=== PATIENT | female | born 1990 | race Caucasian/White ===

== ENCOUNTER → 2021-01-20 11:55 | Outpatient (CLI) | payer OTHER, SELFPAY ==
[2021-01-20 14:55] LABS: Add Manual Diff / Slide Review NO; Basophils Absolute Auto 0 /uL (0-100); Basophils Percent Auto 0.2 % (0-2); Eosinophils Absolute Auto 100 /uL (0-450); Eosinophils Percent Auto 0.4 % (2-4); Hematocrit 31.3 % (36-46); Hemoglobin 10.4 g/dL (12.0-16.0); Lymphocytes Absolute Auto 2200 /uL (1100-4500); Lymphocytes Percent Auto 15.9 % (25-40); Mean Corpuscular HGB Conc 33.3 % (30-36); Mean Corpuscular Hemoglobin 30.5 PG (26-34); Mean Corpuscular Volume 91.6 fL (80-100); Monocytes Absolute Auto 900 /uL (0-900); Monocytes Percent Auto 6.1 % (3-14); Neutrophils Absolute Auto 10800 /uL (1500-7000); Neutrophils Percent Auto 77.4 % (50-75); Platelet Count 315 X10^3/uL (150-400); Red Blood Cell Count 3.42 X10^6/uL (4.0-5.2); Red Cell Distribution Width 13.1 % (11.6-14.8)
[2021-01-20 15:44] LABS: GTT (PREG) 1 Hour PP 50gm Dose 97 mg/dL (76-139)
[2021-01-20 16:29] LABS: Urine N gonorrhoeae NOT DETECTED
[2021-01-20 16:39] LABS: Urine Chlamydia NOT DETECTED
[2021-01-21 07:16] LABS: RPR Screen Non Reactive (Non Reactive)
[2021-01-21 08:13] LABS: Varicella IgG Antibody <135 index (Immune >165)
[2021-01-23 17:43] LABS: Hep C Virus Ab w/Reflex Quant NEGATIVE s/c (NEGATIVE); Hepatitis B Surface Antigen NEGATIVE s/c (NEGATIVE); Rubella Antibody IgG 44.1 IU/mL (>15)
== END ==
PROVIDERS: Referring Provider Specialist; Visit Provider Specialist
DX: Z34.03 Encounter for supervision of normal first pregnancy, third trimester (principal)
CPT/HCPCS: 36415; 80055; 82950; 86787; 86803; 87491; 87591

== ENCOUNTER → 2021-03-02 12:53 | Outpatient (CLI) | payer OTHER, SELFPAY ==
[2021-03-03 12:16] LABS: Strep Grp B PCR POS for Grp B Strep
== END ==
PROVIDERS: PCP Nurse Practitioner Family; Visit Provider Specialist
DX: Z34.83 Encounter for supervision of other normal pregnancy, third trimester (principal); Z36.85 Encounter for antenatal screening for Streptococcus B; Z3A.36 36 weeks gestation of pregnancy
CPT/HCPCS: 87653

== ENCOUNTER 2021-03-20 03:31 | Observation (INO) | payer OTHER, SELFPAY ==
--- NOTE | 2021-03-20 06:05 | P.TNLD_ITS ---
Visit Information Visit Information Date of evaluation: 03/20/21 Primary OB Provider: Candice Bajwa On-call OB Provider: Jacqueline Pruitt Reason for Evaluation: Yes rule out labor Comments/Additional reasons for admission: 30YO @ 39wks here for evaluation of labor. Has been krysta all night. Contractions have progressed in intensity, now unbearable. +FM. No vaginal bleeding or leaking of fluid. Requesting pain medication. Uncomplicated care w/ . Vital Signs Vital Signs: BP 126/78mmHg, HR 72bpm, RR18/min, T 36.0F Temporal [facility] Medical History Chicken pox Vision disorder Surgical History [place] teeth extracted (~2009) Family History Father No problems noted. Mother Cancer Breast cancer Pre-diabetes Grandfather Cancer Pancreatic cancer Grandmother Fatty liver disease, nonalcoholic Lupus (systemic lupus erythematosus) Grandfather No problems noted. Grandmother No problems noted. Sister Horner syndrome Family/Other Cancer Breast cancer Diabetes mellitus Family/Other Diabetes mellitus Brother No problems noted. 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!) occupational status: unemployed current occupational exposures/hazards: No special jan needs: No Smoking Status: Never smoker second hand exposure: No alcohol intake: former (pre- : very rare) substance use type: does not use and marijuana (Occasional in the Past : not since confirmed ) Review of Systems Review of Systems ROS: Yes All systems reviewed with the patient and are negative except as otherwise documented Exam Vital Signs (past 8 hours): see above Presentation: vertex Psych Appearance: grossly normal Mental Status: mental status grossly normal Evaluation Evaluation Baseline heart rate: 135 Variability: Moderate (11-25) monitor accelerations: Present Monitor Decelerations: Early (single) Contraction Frequency (minutes): 3 Uterine Contraction Intensity: Mild Category of Tracing: Reactive Cervical dilation (cm): 1.5 Cervical effacement (%): 90 station: -2 Comments: CE unchanged after 2 hours Diagnosis, Plan/Disposition Final Diagnosis (1) False labor after 37 completed weeks of gestation: Status: Acute Problem details: early labor Plan/Disposition Plan: Offered morphine rest which patient agreed to. Counseled on side effect/risk/benefit. Encouraged rest and return of contractions persist. Otherwise Return to clinic as scheduled. OB Disposition: home
[2021-03-20] MEDS: hydrOXYzine pamoate 25 MG CAPSULE 50 MG PO (06:15)
[2021-03-20] MEDS: MORPHINE 10 MG/ML INJ IM (06:15)
== END 2021-03-20 06:28 | disposition home or self-care (01) ==
PROVIDERS: Admitting Provider Nurse Practitioner Obstetrics & Gynecology; PCP Nurse Practitioner Family; Referring Provider Nurse Practitioner Obstetrics & Gynecology; Visit Provider Nurse Practitioner Obstetrics & Gynecology
DX: O47.1 False labor at or after 37 completed weeks of gestation (principal); Z34.03 Encounter for supervision of normal first pregnancy, third trimester; Z3A.39 39 weeks gestation of pregnancy
CPT/HCPCS: 59025; 59050; 96372; G0378; G0379; J2270

== ENCOUNTER 2021-03-20 14:42 | Outpatient (CLI) | payer OTHER, SELFPAY | END 2021-03-20 15:44 | disposition home or self-care (01) | LOC: LABOR 16:21 → OB 03-21 04:49 | PROVIDERS: PCP Nurse Practitioner Family; Referring Provider Specialist; Visit Provider Specialist | DX: Z34.03 Encounter for supervision of normal first pregnancy, third trimester (principal); Z3A.39 39 weeks gestation of pregnancy | CPT/HCPCS: 59025; G0378; G0379 ==

== ENCOUNTER 2021-03-21 03:12 | Outpatient (CLI) | payer OTHER, SELFPAY ==
[2021-03-21 23:25] LABS: Add Manual Diff / Slide Review YES; Hematocrit 32.4 % (36-46); Mean Corpuscular HGB Conc 33.9 % (30-36); Mean Corpuscular Hemoglobin 30.1 PG (26-34); Mean Corpuscular Volume 88.8 fL (80-100); Platelet Count 395 X10^3/uL (150-400); Red Blood Cell Count 3.65 X10^6/uL (4.0-5.2); Red Cell Distribution Width 13.4 % (11.6-14.8); White Blood Cell Count 23.7 X10^3/uL (4.5-11.0)
[2021-03-22 00:46] LABS: Neutrophils Absolute Manual 19908 /uL (3000-5900); Total Cells Counted 100
[2021-03-22 00:47] LABS: RBC Morphology Normal Morphology
== END 2021-03-21 04:26 | disposition home or self-care (01) ==
LOC: OB 03-23 07:36
PROVIDERS: PCP Nurse Practitioner Family; Referring Provider Specialist; Visit Provider Specialist
DX: Z34.03 Encounter for supervision of normal first pregnancy, third trimester (principal); Z3A.39 39 weeks gestation of pregnancy
CPT/HCPCS: 59025; 85007; 85025; 86850; 86900; 86901; G0378; G0379

== ENCOUNTER 2021-03-21 22:29 | Inpatient (IN) | payer OTHER, SELFPAY ==
[2021-03-21] MEDS: LACTATED RINGERS 1,000 ML 1000 ML IV (23:17)
[2021-03-21] MEDS: PENICILLIN G POTASSIUM 5,000,000 UNIT in DEXTROSE 5% IN WATER 250 ML IV (23:20)
[2021-03-22 00:45] VITALS: BP 134/78
[2021-03-22 01:20] LABS: COVID19 - ADMIT (NP swab/PCR) Negative (Negative)
[2021-03-22] MEDS: LACTATED RINGERS 1,000 ML 100 ML IV ×2 (01:50→06:36)
[2021-03-22] MEDS: PENICILLIN G POTASSIUM 3,000,000 UNIT/50 ML FROZ.PIGGY 100 UNIT IV (03:40)
--- NOTE | 2021-03-22 06:26 | P.HPOB_ITS ---
OB HPI Date/Time Date of admission: 03/21/21 Date Patient Seen: 03/22/21 Time Patient Seen: 06:26 History of Present Condition Chief complaint: observation of labor : 1 Para: 0 Estimated Date of Delivery: 03/27/21 Estimated Gestational Age (weeks): 39+2 Narrative: Nikki Manning is a 30 year old female admitted late on the evening of 03/21/2021 in early labor at 39+1 weeks EGA. Late transfer from [place] [place] largely uneventful, genetic studies normal. GBS positive. Patient expressed desire to encapsulate the placenta so will need to be saved. History of Present care: good care Dating criteria: LMP confirmed by 1st trimester US Ultrasounds: normal 1st trimester US and normal mid trimester US Obstetrical complications: none and other (GBS carrier) Medical complications: none Preadmission Labs Blood type: O (+) positive -: Antibody screen: negative, GBS status: positive, HBsAG: negative, HIV: negative and RPR/VDLR: negative -: Chlamydia screen: not detected and Gonorrhea screen: not detected -: Rubella: immune and Varicella: not immune HCT: 32.4 HCAB: negative PAP: Normal Cell-free DNA: Negative 1 hr GTT: 97 Prior (ies) History: N/A [facility] Medical History Chicken pox Vision disorder Surgical History [place] teeth extracted (~2009) Family History Father No problems noted. Mother Cancer Breast cancer Pre-diabetes Grandfather Cancer Pancreatic cancer Grandmother Fatty liver disease, nonalcoholic Lupus (systemic lupus erythematosus) Grandfather No problems noted. Grandmother No problems noted. Sister Horner syndrome Family/Other Cancer Breast cancer Diabetes mellitus Family/Other Diabetes mellitus Brother No problems noted. 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!) occupational status: unemployed current occupational exposures/hazards: No special jan needs: No Smoking Status: Former smoker second hand exposure: No alcohol intake: former (pre- : very rare) substance use type: does not use and marijuana (Occasional in the Past : not since confirmed ) Meds Home Medications and Allergies Home Medications Medication Instructions Recorded Confirmed Type prenat.vits,laura,php-fcjm-sbcaj 1 tab PO DAILY 01/18/21 03/21/21 History omeprazole 40 mg capsule,delayed 40 mg PO DAILY #30 cap 02/21/21 03/21/21 Rx release Allergies Allergy/AdvReac Type Severity Reaction Status Date / Time No Known Drug Allergies Allergy Verified 01/18/21 10:18 Review of Systems Review of Systems Narrative: Problem-specific ROS positives included in HPI Exam Vital Signs (past 8 hours): - 03/22/21 00:45 Blood Pressure 134/78 Const General: cooperative and comfortable Nutritional Appearance: overweight Orientation: alert and oriented x3 HENMT Head: normal to inspection Ears: hearing grossly normal bilaterally Nose: external nose normal Face and sinus: face symmetric Eyes General: appearance normal, both eyes and all related structures Conjunctivae: conjunctivae normal Sclera: sclerae normal EOM: EOM intact bilaterally Neck Neck: normal visual inspection, trachea midline and No lymphadenopathy Thyroid: thyroid normal Resp Effort & Inspection: normal respiratory effort and able to speak in complete sentences Auscultation: clear to auscultation bilaterally Cardio Rate: regular rate Rhythm: regular rhythm Heart Sounds: S1 normal and S2 normal GI Inspection: normal to inspection and other (Gravid) Palpation: soft and no hepatosplenomegaly External Female Exam: normal external appearance Uterus Location (Fundal Height): 36 Presentation: vertex Estimated Weight (lbs): 8 Amniotic Fluid: clear and other (OA position) Skin General: no rashes or lesions noted Psych Appearance: grossly normal Mental Status: mental status grossly normal Speech and Movement: speech and movement normal Mood: congruent mood Affect: normal affect Attitude: cooperative Thought Process: normal Thought Content: normal Judgment: judgment good Objective Labs Labs: Laboratory Results - last 24 hr 03/21/21 23:00 SARS-CoV-2 (PCR) Negative Assessment and Plan Assessment and Plan Assessment and Plan narrative: ASSESSMENT Intrauterine gestation, lu, vertex, 39+2 weeks EGA GBS carrier PLAN Admit in labor JASON placed GBS prophylaxis Anticipate Time Spent with Patient Total time spent with greater than 50% in coordination of care (as documented) at patient's floor/unit and/or counseling patient:: 15-24 minutes
--- NOTE | 2021-03-22 06:43 | PM.OBPNLAB ---
Date/Time Date Patient Seen: 03/22/21 Time Patient Seen: 06:15 Pain Control Pain control: tolerating well Pelvic Exam Dilation (cm): 10 Effacement (%): 100 station: +2 Amniotic membrane status: Ruptured Comments: SROM 0400. Clear fluid. Contractions Contractions on admission: regular Monitor mode: External Contraction frequency (min): 4 Contraction duration (min): 1 Contraction pattern: Regular Contraction phase: Resting Contraction intensity: Moderate Status status: Category l Heart Rate Baseline: 145 Monitor Decelerations: Variable (With pushing) Monitor Variability: Moderate Comments: 4-5 minute bradycardia @ 0600 when position change occured in preparation for pushing. Resolved now. Assessment and Plan Assessment: active labor Plan: continuous present management and other (Anticipate )
[2021-03-22] MEDS: OXYTOCIN PREMIX 30 UNIT/500 ML PLAST..BAG 200 UNIT IV (07:40)
--- NOTE | 2021-03-22 08:16 | PM.OBPRVD ---
Labor & Delivery Delivery date: 03/22/21 Intrapartal Events: None Cervical ripening method: none Induction method: none Delivery monitor: external FHT and external uterine Route of delivery: L&D Laceration Description: Vaginal - 2nd Degree and Labial (Superficial right labial tear) Delivery repair: chromic (3 0) Estimated blood loss (mL): 450 Anesthesia Type: Epidural Narrative: Patient arrived on Labor and delivery in active labor. She received an epidural catheter for pain control. heart tones category 1 to category 2 throughout labor. She did have a prolonged deceleration lasting approximately 5 minutes when the patient was found to be completely dilated. Resuscitative measures were successful in restoring the heart rate. Patient delivered spontaneously, over an intact perineum. The viable female infant had a nuchal cord that was released and then the infant was placed on maternal abdomen. After the cord stopped pulsating the cord was clamped, cut, and cord bloods obtained. The placenta delivered spontaneously, intact, with 3 vessels. There were no cervical tears. There was a second-degree vaginal tear that was repaired in 2 layers with 3 0 chromic suture. A right labial tear was reapproximated with 3 0 chromic suture. Estimated blood loss 450 cc. Both infant mother doing well. Baby 1: Infant gender: Female Presentation: vertex Position: Right Occiput Anterior Placenta delivery description: Spontaneous Cord Vessel Description: 3 Vessels and Nuchal Cord score (1 min): 8 score (5 min): 9 weight: 6 lb 14 oz Plan for aftercare: Routine care
[2021-03-22] MEDS: ACETAMINOPHEN 325 MG TABLET 650 MG PO ×3 (09:39→21:49)
[2021-03-22] MEDS: DOCUSATE 100 MG CAPSULE PO (09:39)
[2021-03-22] MEDS: IBUPROFEN 600 MG TABLET PO ×3 (09:39→21:48)
[2021-03-22] MEDS: DERMOPLAST SPRAY 20% 60 ML 1 SPRAY TOP (09:40)
[2021-03-23 06:20] LABS: Add Manual Diff / Slide Review NO; Basophils Absolute Auto 0 /uL (0-100); Basophils Percent Auto 0.3 % (0-2); Eosinophils Absolute Auto 100 /uL (0-450); Eosinophils Percent Auto 0.6 % (2-4); Hematocrit 23.9 % (36-46); Hemoglobin 7.8 g/dL (12.0-16.0); Lymphocytes Absolute Auto 3800 /uL (1100-4500); Lymphocytes Percent Auto 21.3 % (25-40); Mean Corpuscular HGB Conc 32.8 % (30-36); Mean Corpuscular Hemoglobin 29.3 PG (26-34); Mean Corpuscular Volume 89.4 fL (80-100); Monocytes Absolute Auto 1500 /uL (0-900); Monocytes Percent Auto 8.7 % (3-14); Neutrophils Absolute Auto 12200 /uL (1500-7000); Neutrophils Percent Auto 69.1 % (50-75); Platelet Count 302 X10^3/uL (150-400); Red Blood Cell Count 2.67 X10^6/uL (4.0-5.2); Red Cell Distribution Width 13.7 % (11.6-14.8); White Blood Cell Count 17.7 X10^3/uL (4.5-11.0)
--- NOTE | 2021-03-23 09:47 | PM.OBDS.1 ---
Discharge Providers Provider Date of admission: 03/21/21 22:29 Discharge Date: 03/23/21 Primary care physician: MARINO Laird Consults: 03/23/21 08:14 Consult to Plastic Injection Mold Maker Routine Comment: Discharge provider: Candice Bajwa MD Summary Hospital Course Date Patient Seen: 03/23/21 Time Patient Seen: 09:47 Diagnoses: Vaginal delivery, acute blood loss anemia Hospital Course: Patient arrived in Labor and delivery in active labor and delivered spontaneously vaginally. She had significant bleeding from a second-degree vaginal tear that was repaired. Peripartum Data Infant Delivery Method: Natural Vaginal Laceration Description: Vaginal - 2nd Degree Procedures: Epidural catheter, spontaneous vaginal delivery, repair of second-degree vaginal tear complications: none Jewell 1: Gender: Female Disposition of : home Discharge Diagnosis (1) Vaginal delivery: Status: Acute (2) Acute blood loss anemia: Status: Acute Status at Discharge Cognitive/behavioral status at discharge: oriented Functional status at discharge: independent ambulation Overall status at discharge: patient is progressing back to baseline Time Spent with Patient Time attestation: Total time spent providing and/or coordinating discharge services: Time spent: Less than 30 minutes Objective Labs Result Diagrams: 03/23/21 05:55 Labs: Laboratory Results - last 24 hr 03/23/21 05:55 WBC 17.7 H RBC 2.67 L Hgb 7.8 L Hct 23.9 L MCV 89.4 MCH 29.3 MCHC 32.8 RDW 13.7 Plt Count 302 Neut % (Auto) 69.1 Lymph % (Auto) 21.3 L [place] % (Auto) 8.7 Eos % (Auto) 0.6 L Baso % (Auto) 0.3 Neut # (Auto) 40548 H Lymph # (Auto) 3800 [place] # (Auto) 1500 H Eos # (Auto) 100 Baso # (Auto) 0 Exam Vital Signs (past 8 hours): Blood pressure 102/65, pulse of 83, temperature 97.5? Narrative Exam Narrative: Abdomen is soft, nontender. Uterus is firm, at U, nontender. Repair is intact without evidence of hematoma formation. Extremities without edema and nontender. Patient is Rh positive, rubella immune, received Tdap in the 3rd trimester. Discharge Plan Discharge Plan Patient Disposition: Home Discharge orders & Medications Prescriptions: New ibuprofen 600 mg Tablet 600 mg PO Q6HR PRN (Reason: Pain, Mild (1-3)) Qty: 20 RF: 0 ferrous gluconate 324 mg (37.5 mg iron) tablet 324 mg PO DAILY Qty: 30 RF: 0 Continued omeprazole 40 mg capsule,delayed release(DR/EC) 40 mg PO DAILY Qty: 30 RF: 1 prenat.vits,laura,lzj-warl-fewun Tablet 1 tab PO DAILY RF: 0 Follow up/Referrals: Candice Bajwa MD [Physician] - 1 Month Barbra Arango ARNP [Primary Care Provider] - Diet/Activity/Treatments Diet: Regular Activity: Nothing in vagina for 6 weeks Skin/Wound/Dressing Care Report to your healthcare provider any signs of infection, such as:: chills, fever and increased pain Discharge Data Primary Care Provider: Barbar Arango
[2021-03-23 10:09] VITALS: BP 134/78; PULSE 80; RESP 18; TEMP 36.9
== END 2021-03-23 13:35 | disposition home or self-care (01) | DRG 806 ==
PROVIDERS: Specialist; Admitting Provider Obstetrics & Gynecology; PCP Nurse Practitioner Family; Referring Provider Obstetrics & Gynecology; Visit Provider Obstetrics & Gynecology
DX: O99.824 Streptococcus B carrier state complicating childbirth (principal); D62 Acute posthemorrhagic anemia; Z37.0 Single live birth; O99.02 Anemia complicating childbirth; O69.81X0 Labor and delivery complicated by cord around neck, without compression, not applicable or unspecified; Z3A.39 39 weeks gestation of pregnancy; Z20.822 Contact with and (suspected) exposure to COVID-19; O70.1 Second degree perineal laceration during delivery; O70.0 First degree perineal laceration during delivery; O76 Abnormality in fetal heart rate and rhythm complicating labor and delivery
CPT/HCPCS: 01967; 36415; 59025; 59050; 59410; 85007; 85025; 86850; 86900; 86901; 87635; C9803; G0378; G0379; J2540; J2590

== ENCOUNTER → 2023-10-01 15:54 | Outpatient (CLI) | payer OTHER, SELFPAY ==
--- NOTE | 2023-10-01 15:56 | DI.US.S_ITS ---
PROCEDURE: US OB <= 14 WEEKS FETUS INDICATIONS: dating and viability OUTSIDE/PRIOR DATING DATA: Last menstrual period (LMP): 08/02/2023. LMP-based estimated date of delivery (KIRSTEN): 05/08/2024. First dating scan (date and location): 10/01/2023. Estimated date of delivery (KIRSTEN) from first dating scan: 05/12/2024. TECHNIQUE: Real-time scanning was performed of the fetus and maternal pelvic organs, with image documentation. Endovaginal scanning was also performed to better visualize the fetus and maternal ovaries. COMPARISON: None. FINDINGS: Living intrauterine gestation with heart motion detected. Heart rate is 128 beats per minute. [place]-rump length is 1.6 centimeters. Sonographic age is 8 weeks. Suspected right corpus luteum cyst is present. Left ovary is not well seen. Small areas of subchronic hemorrhage, measuring up to 2.4 x 0.8 centimeters and 1.6 x 0.4 centimeters. IMPRESSION: Living intrauterine gestation at an ultrasound age of 8 weeks. Small perigestational hemorrhage foci. Dictated by: Tra Brown M.D. on 10/01/2023 at 16:36 Approved by: Tra Brown M.D. on 10/01/2023 at 16:37
== END ==
PROVIDERS: PCP Nurse Practitioner Family; Referring Provider Obstetrics & Gynecology; Visit Provider Obstetrics & Gynecology
DX: O46.8X1 Other antepartum hemorrhage, first trimester; Z3A.08 8 weeks gestation of pregnancy
CPT/HCPCS: 76801

== ENCOUNTER → 2023-10-30 16:01 | Outpatient (CLI) | payer OTHER, SELFPAY ==
[2023-10-30 20:54] LABS: Urine N gonorrhoeae NOT DETECTED
[2023-10-30 20:57] LABS: Urine Chlamydia NOT DETECTED
== END ==
PROVIDERS: PCP Nurse Practitioner Family; Referring Provider Obstetrics & Gynecology; Visit Provider Obstetrics & Gynecology
DX: Z34.01 Encounter for supervision of normal first pregnancy, first trimester (principal)
CPT/HCPCS: 87491; 87591

== ENCOUNTER → 2023-11-01 08:19 | Outpatient (CLI) | payer OTHER, SELFPAY ==
[2023-11-01 09:54] LABS: Add Manual Diff / Slide Review NO; Basophils Absolute Auto 0 /uL (0-100); Basophils Percent Auto 0.3 % (0-2); Eosinophils Absolute Auto 100 /uL (0-450); Eosinophils Percent Auto 0.8 % (2-4); Hematocrit 33.9 % (36-46); Hemoglobin 11.9 g/dL (12.0-16.0); Lymphocytes Absolute Auto 2100 /uL (1100-4500); Lymphocytes Percent Auto 19.7 % (25-40); Mean Corpuscular HGB Conc 35.2 % (30-36); Mean Corpuscular Hemoglobin 32.3 PG (26-34); Mean Corpuscular Volume 91.7 fL (80-100); Monocytes Absolute Auto 600 /uL (0-900); Monocytes Percent Auto 5.6 % (3-14); Neutrophils Absolute Auto 7800 /uL (1500-7000); Neutrophils Percent Auto 73.6 % (50-75); Platelet Count 315 X10^3/uL (150-400); Red Cell Distribution Width 12.6 % (11.6-14.8); White Blood Cell Count 10.6 X10^3/uL (4.5-11.0)
[2023-11-01 10:43] LABS: Hepatitis B Surface Antigen NEGATIVE s/c (NEGATIVE); Rubella Antibody IgG 47.6 IU/mL (>15)
[2023-11-01 10:57] LABS: HIV 1 & 2 Ab/Ag 4th Gen Combo NEGATIVE (NEGATIVE); Hep C Virus Ab w/Reflex Quant NEGATIVE s/c (NEGATIVE)
[2023-11-02 06:35] LABS: RPR Screen Non Reactive (Non Reactive)
[2023-11-02 08:10] LABS: Varicella IgG Antibody <135 index (Immune >165)
== END ==
LOC: LAB 08:20
PROVIDERS: PCP Nurse Practitioner Family; Referring Provider Obstetrics & Gynecology; Visit Provider Obstetrics & Gynecology
DX: Z34.80 Encounter for supervision of other normal pregnancy, unspecified trimester (principal)
CPT/HCPCS: 36415; 80055; 86787; 86803; 86850; 86900; 86901; 87086; 87389

== ENCOUNTER → 2023-11-05 08:19 | Outpatient (CLI) | payer OTHER, SELFPAY ==
[2023-11-05 10:25] LABS: Natera Collection Specimen Collected
== END ==
PROVIDERS: PCP Nurse Practitioner Family; Referring Provider Obstetrics & Gynecology; Visit Provider Obstetrics & Gynecology
DX: Z34.81 Encounter for supervision of other normal pregnancy, first trimester (principal); Z3A.12 12 weeks gestation of pregnancy
CPT/HCPCS: 36415

== ENCOUNTER → 2023-11-11 13:35 | Outpatient (CLI) | payer OTHER, SELFPAY ==
[2023-11-11 14:38] LABS: Natera Collection Specimen Collected
== END ==
PROVIDERS: PCP Nurse Practitioner Family; Referring Provider Obstetrics & Gynecology; Visit Provider Obstetrics & Gynecology
DX: Z34.81 Encounter for supervision of other normal pregnancy, first trimester (principal)
CPT/HCPCS: 36415

== ENCOUNTER → 2023-12-11 10:33 | Outpatient (CLI) | payer OTHER, SELFPAY ==
[2023-12-13 20:09] LABS: AFP Value 28.3 ng/mL (.); Gest Age on Col Date 18.6 weeks (.); Insulin Dep Diabetes No (.); OSBR Risk 1IN 10000 (.); Results Report (.); Test Results *Screen Negative* (.)
== END ==
LOC: LAB 10:35
PROVIDERS: PCP Nurse Practitioner Family; Referring Provider Obstetrics & Gynecology; Visit Provider Obstetrics & Gynecology
DX: Z34.82 Encounter for supervision of other normal pregnancy, second trimester (principal); Z36.0 Encounter for antenatal screening for chromosomal anomalies; Z3A.18 18 weeks gestation of pregnancy
CPT/HCPCS: 36415; 82105

== ENCOUNTER → 2023-12-23 14:23 | Outpatient (CLI) | payer OTHER, SELFPAY ==
--- NOTE | 2023-12-23 14:24 | DI.US.S_ITS ---
PROCEDURE: US OB >= 14 WEEKS FETUS INDICATIONS: 20 weeks anatomy OUTSIDE/PRIOR DATING DATA: Last menstrual period (LMP): 08/02/23. LMP-based estimated date of delivery (KIRSTEN): 05/08/24. First dating scan (date and location): 10/01/23. Estimated date of delivery (KIRSTEN) from first dating scan: 05/12/24. The calculations are made using the clinical KIRSTEN of 05/02/24. TECHNIQUE: Real-time scanning was performed of the fetus, with image documentation and biometric measurements. Endovaginal scanning: No COMPARISON: [facility], , OB >= 14 WEEKS FETUS, 02/21/2021, 11:13. FINDINGS: General: A single living intrauterine gestation is present. Presentation: Transverse, head to maternal left. Placenta: Placental position is posterior , without previa. Amniotic fluid index: 13.6 cm, normal range is 5-24 cm. Single deepest vertical pocket is 4.4 cm. heart rate: 153 beats per minute. Maternal cervical canal: Closed and 4.6 cm long. Normal lower limit is 2.5 cm. biometrics: Biparietal diameter: 4.3 cm, 19 weeks three days Head circumference: 16.5 cm, 19 weeks one day Abdominal circumference: 15.0 cm, 20 weeks two days Femur length: 3.2 cm, 19 weeks six days Clinically estimated gestational age: 20 weeks three days Composite gestational age from present scan: 19 weeks five days Estimated weight and percentile: 322 g, 21st percentile Anatomic survey: Neuro: Ventricles are non-dilated at less than 10 mm. Cisterna magna is normal at 3-11 mm. Cerebellum is normal in size and morphology. Nuchal skin fold: Normal at less than 6 mm between 14-21 weeks gestational age. Face: Nose and lips, facial profile are normal. Spine: No evidence for spina bifida. Heart: 4-chambered heart is present. Cardiac outflow tracts were not well seen Diaphragm: Diaphragm is intact. Stomach: Left-sided stomach is present. Kidneys: No hydronephrosis. Normal is less than 5 mm in 2nd trimester, less than 7 mm in 3rd trimester. Cord: 3-vessel cord has orthotopic insertion. Bladder: Normal in size. Extremities: All 4 extremities identified. IMPRESSION: Single living intrauterine with appropriate growth. Cardiac outflow tract suboptimally seen due to position. Otherwise normal anatomy. Short interval follow-up recommended. Closed cervix and normal amniotic fluid volume. Posterior placenta. We strive to produce accurate, complete, and clear reports of imaging services. To assist us in improving patient care, this report was composed using standard report templates and voice recognition software. Therefore, it may contain abnormal punctuation, insertions and/or omissions. Occasional wrong-word or sound-alike substitutions may occur. Though we review the report and make efforts to correct it, we do recommend that the report be read carefully in proper context to recognize any text inaccuracies. Dictated by: Akilah العراقي M.D. on 12/23/2023 at 16:44 Approved by: Akilah العراقي M.D. on 12/23/2023 at 16:49
== END ==
PROVIDERS: PCP Nurse Practitioner Family; Referring Provider Obstetrics & Gynecology; Visit Provider Obstetrics & Gynecology
DX: Z34.82 Encounter for supervision of other normal pregnancy, second trimester (principal); Z3A.19 19 weeks gestation of pregnancy
CPT/HCPCS: 76811

== ENCOUNTER → 2024-01-21 15:34 | Outpatient (CLI) | payer OTHER, SELFPAY ==
--- NOTE | 2024-01-21 15:35 | DI.US.S_ITS ---
PROCEDURE: US OB >= 14 WEEKS FETUS INDICATIONS: incomplete visualization of cardiac outflow tracts OUTSIDE/PRIOR DATING DATA: Last menstrual period (LMP): 08/02/2023 LMP-based estimated date of delivery (KIRSTEN): 05/08/2024. First dating scan (date and location): 10/01/2023. Estimated date of delivery (KIRSTEN) from first dating scan: 05/12/2024. TECHNIQUE: Real-time scanning was performed of the fetus, with image documentation and biometric measurements. COMPARISON: [facility], , OB >= 14 WEEKS FETUS, 12/23/2023, 14:34. FINDINGS: General: A single living intrauterine gestation is present. Presentation: Vertex. Placenta: Placental position is posterior , without previa. Amniotic fluid index: 11.1 cm, normal range is 5-24 cm. Single deepest vertical pocket is 3.3 cm. heart rate: 145 beats per minute. Maternal cervical canal: 3.9 cm long. Normal lower limit is 2.5 cm. Composite gestational age from present scan: 24 weeks 4 days Unremarkable appearance of the cardiac outflow tracts. IMPRESSION: Single living IUP redemonstrated and today's exam demonstrating unremarkable appearance of the cardiac outflow tracts. We strive to produce accurate, complete, and clear reports of imaging services. To assist us in improving patient care, this report was composed using standard report templates and voice recognition software. Therefore, it may contain abnormal punctuation, insertions and/or omissions. Occasional wrong-word or sound-alike substitutions may occur. Though we review the report and make efforts to correct it, we do recommend that the report be read carefully in proper context to recognize any text inaccuracies. Dictated by: Salvatore BYRNES Interpreted: Marvin Barnes MD on 01/23/2024 at 13:19 Transcribed by: SREEKANTH on 01/23/2024 at 13:22 Approved by: Antonio Reed M.D. on 02/16/2024 at 16:55
== END ==
PROVIDERS: PCP Nurse Practitioner Family; Referring Provider Obstetrics & Gynecology; Visit Provider Obstetrics & Gynecology
DX: Z34.82 Encounter for supervision of other normal pregnancy, second trimester (principal); Z3A.24 24 weeks gestation of pregnancy
CPT/HCPCS: 76811

== ENCOUNTER → 2024-02-05 09:47 | Outpatient (CLI) | payer OTHER, SELFPAY ==
[2024-02-05 11:49] LABS: Hematocrit 31.4 % (36-46); Hemoglobin 11.2 g/dL (12.0-16.0)
[2024-02-05 12:41] LABS: GTT (PREG) 1 Hour PP 50gm Dose 102 mg/dL (76-139)
== END ==
PROVIDERS: PCP Nurse Practitioner Family; Referring Provider Obstetrics & Gynecology; Visit Provider Obstetrics & Gynecology
DX: Z34.82 Encounter for supervision of other normal pregnancy, second trimester (principal); Z3A.26 26 weeks gestation of pregnancy
CPT/HCPCS: 36415; 82950; 85014; 85018

== ENCOUNTER → 2024-04-15 09:56 | Outpatient (CLI) | payer OTHER, SELFPAY ==
[2024-04-16 12:14] LABS: Strep Grp B PCR NEG for Grp B Strep
== END ==
PROVIDERS: PCP Nurse Practitioner Family; Visit Provider Obstetrics & Gynecology
DX: Z36.85 Encounter for antenatal screening for Streptococcus B (principal)
CPT/HCPCS: 87653

== ENCOUNTER → 2024-04-22 16:44 | Outpatient (CLI) | payer OTHER, SELFPAY ==
[2024-04-22 16:54] LABS: Hematocrit 32.5 % (36-46); Hemoglobin 11.3 g/dL (12.0-16.0)
== END ==
LOC: LAB 16:45
PROVIDERS: PCP Nurse Practitioner Family; Referring Provider Obstetrics & Gynecology; Visit Provider Obstetrics & Gynecology
DX: O99.013 Anemia complicating pregnancy, third trimester (principal); Z3A.37 37 weeks gestation of pregnancy
CPT/HCPCS: 36415; 85014; 85018

== ENCOUNTER 2024-05-08 12:50 | Outpatient (CLI) | payer OTHER, SELFPAY | END 2024-05-08 14:00 | disposition home or self-care (01) | LOC: LABOR 13:34 → OB 05-10 09:24 | PROVIDERS: PCP Nurse Practitioner Family; Referring Provider Obstetrics & Gynecology; Visit Provider Obstetrics & Gynecology | DX: O42.92 Full-term premature rupture of membranes, unspecified as to length of time between rupture and onset of labor (principal); Z3A.39 39 weeks gestation of pregnancy | CPT/HCPCS: 59025; 84112; G0378; G0379 ==

== ENCOUNTER 2024-05-08 18:12 | Inpatient (IN) | payer OTHER, SELFPAY ==
[2024-05-08 19:41] VITALS: BP 116/73
--- NOTE | 2024-05-08 19:49 | PM.OBHP.IH.1 ---
OB HPI Date/Time Date of admission: 05/08/24 Date Patient Seen: 05/08/24 Time Patient Seen: 19:49 History of Present Condition Chief complaint: induction KIRSTEN Calculator Estimated Delivery Date Method Current WG Current Estimate 05/09/24 LMP (Uncertain) 39w 6d Other Estimates 05/12/24 Ultrasound #1 39w 3d Estimated Gestational Age (weeks): 39.6 : 2 Para: 1 Narrative: Patient had spontaneous rupture of membranes with a slow leak at 7:45 a.m. this morning. She wished to go home and get her child settled before coming back. She returned at 6:30 p.m.. No regular contractions. No fever. care: good care, initiated at week #, number of visits and pounds weight gain Dating criteria OB: LMP confirmed by 1st trimester US Ultrasounds: normal 1st trimester US and normal mid trimester US Obstetrical complications: none Medical complications OB: none Preadmission Labs Last OB Lab Results: Blood Type O Positive 11/01/23 08:24 Antibody Screen Negative 11/01/23 08:24 Hct 32.5 % (36-46) L 04/22/24 16:47 Hgb 11.3 g/dL (12.0-16.0) L 04/22/24 16:47 Hep Bs Antigen Negative s/c (NEGATIVE) 11/01/23 08:24 Hepatitis C Antibody Negative s/c (NEGATIVE) 11/01/23 08:24 Rubella Antibody 47.6 IU/mL (>15) 11/01/23 08:24 VZV IgG Antibody <135 index (Immune >165) L 11/01/23 08:24 Glucose 1 Hr 50 gm 102 mg/dL (76-139) 02/05/24 09:56 Group B Strep (PCR) Neg for grp b strep 04/15/24 09:56 -: Chlamydia screen: negative, Gonorrhea screen: negative and Urine: negative -: PAP smear: Normal (2020) Genetic Screens: Cell-free DNA: Normal (normal male) and Alpha-fetoprotein: Normal External Labs -: Urine: negative Prior (ies) Past Pregnancies Del. Date GA/Weeks Labor Lgth Wt Sex Route Outcome Anesthesia Place Delv Breastfeed Preg Comp Name 03/22/21 39.2 60 6 lb 14 oz Female vaginal live - full term epidural IH 15 months none Wolf Evaluation Evaluation Baseline heart rate: 135 Variability: Moderate (11-25) monitor accelerations: Present Monitor Decelerations: Absent Contraction Frequency (minutes): 15 Uterine Contraction Intensity: Mild Status: Category l Dilation (cm): 2 Effacement (%): 70 Comments: Last exam done in office [facility] Medical History (Updated 02/21/24 @ 09:37 by Dandre Olmos MD) Acute blood loss anemia Vaginal delivery (~03/22/21) Chicken pox Surgical History [place] teeth extracted (~2009) Family History (Updated 09/19/23 @ 13:39 by Zahira Hayward RN) Mother Breast cancer Pre-diabetes Closed head injury Grandfather Pancreatic cancer Alcoholism Grandmother Fatty liver disease, nonalcoholic Lupus (systemic lupus erythematosus) Grandfather No problems noted. Sister Horner syndrome Aunt Breast cancer Diabetes mellitus Uncle Diabetes mellitus Social History marital status: number of children: 1 household members: spouse, family and children lives independently: Yes caregiver/support person: Yes housing: house pets and animals: Yes (X 2 dogs) education level: college occupational status: unemployed current occupational exposures/hazards: No special jan needs: No travel history: recent seatbelt use: always water heater temp set < 120 deg: Yes working smoke detector in home: Yes fire extinguisher in home: Yes carbon monox detector in home: Yes firearms in home: Yes firearms unloaded and locked: Yes do you feel safe at home: Yes Smoking Status: Former smoker second hand exposure: No alcohol intake: former substance use type: does not use and marijuana during the past year weight has: remained stable well-balanced diet: rarely or never daily servings fruits/ve-1 caffeine: Yes (AM single cup coffee) Type(s) of exercise: walking Meds Home Medications and Allergies Home Medications Medication Instructions Recorded Confirmed Type sumatriptan succinate 50 mg tablet See Rx Instructions PO .COMPLEX 12/03/23 05/05/24 Rx #20 tabs fcbiwfarqm-ckoejuzymrbnd-yoyyclxf 2 cap PO Q6H PRN pain #30 caps 07/31/24 11/26/24 Rx 50 mg-325 mg-40 mg capsule magnesium oxide 500 mg capsule 1,000 mg (2 x 500 mg) PO BEDTIME 01/08/24 05/05/24 Rx #60 caps vit no.95-ferrous 1 tab PO DAILY #90 tabs 04/22/24 05/05/24 Rx fumarate 28 mg-folic acid 800 mcg tablet ( Multivitamins) Allergies Allergy/AdvReac Type Severity Reaction Status Date / Time No Known Drug Allergies Allergy Verified 05/05/24 10:08 OB Exam Narrative Exam Narrative: Generally: Patient is sitting up in bed, no acute distress Lungs: Clear to auscultation bilaterally Cardiovascular: Regular rate and rhythm Fundal height: 40 cm Estimated weight 7-1/2 lb Extremities: Trace edema Assessment and Plan Assessment and Plan Assessment and Plan narrative: Assessment: 33-year-old 2 para 1 at 39-,6/7 weeks gestation with spontaneous rupture of membranes at 7:45 this morning No s/s of chorioamnionitis No regular contractions after 12 hours Group B strep negative Has not had any vaginal exams since her office visit on Saturday H/O PPH, no blood or OR Plan: Pitocin augmentation Epidural as necessary We will begin antibiotics at 18 hours post rupture of membranes Expected management to spontaneous vaginal delivery Patient will be signed out to Dr. De La Garza at 10pm. Time-Based Coding :: [TOTAL MINUTES] spent with patient and on the chart (including review of chart, obtaining history, exam, reviewing outside data, placing orders, documenting exam and treatment plan, and counseling patient) on [DATE].
[2024-05-08] MEDS: LACTATED RINGERS 1,000 ML 30 ML IV (20:00)
[2024-05-08 20:22] LABS: Add Manual Diff / Slide Review NO; Basophils Absolute Auto 100 /uL (0-100); Basophils Percent Auto 0.7 % (0-2); Eosinophils Absolute Auto 100 /uL (0-450); Eosinophils Percent Auto 0.8 % (2-4); Hematocrit 31.9 % (36-46); Hemoglobin 11.2 g/dL (12.0-16.0); Lymphocytes Absolute Auto 2500 /uL (1100-4500); Lymphocytes Percent Auto 17.2 % (25-40); Mean Corpuscular Hemoglobin 32.1 PG (26-34); Mean Corpuscular Volume 91.6 fL (80-100); Monocytes Absolute Auto 1100 /uL (0-900); Monocytes Percent Auto 7.8 % (3-14); Neutrophils Absolute Auto 10500 /uL (1500-7000); Neutrophils Percent Auto 73.5 % (50-75); Platelet Count 278 X10^3/uL (150-400); Red Blood Cell Count 3.48 X10^6/uL (4.0-5.2); Red Cell Distribution Width 13.7 % (11.6-14.8); White Blood Cell Count 14.3 X10^3/uL (4.5-11.0)
[2024-05-08] MEDS: OXYTOCIN PREMIX 30 UNIT/500 ML PLAST..BAG IV (22:00)
--- NOTE | 2024-05-09 02:55 | PM.AN.REGBLK ---
Regional Block Pre-procedure PMH/ROS narrative: 33yr old requesting epidural for labor pain ASA Class: II Labs: Hct 31.9 % (36-46) L 05/08/24 20:00 Plt Count 278 X10^3/uL (150-400) 05/08/24 20:00 Medications: Current Medications Generic Name Dose Route Start Last Admin Trade Name Freq PRN Reason Stop Dose Admin Calcium Carbonate 1,000 mg 05/08/24 20:04 Calcium Carbonate 500 Mg Tab PO Q2HR PRN Dyspepsia Carboprost Tromethamine 250 mcg 05/08/24 19:58 Carboprost 250 Mcg/Ml Ampul IM Q90M PRN Bleeding Fentanyl 50 mcg 05/08/24 20:04 Fentanyl 100 Mcg/2 Ml Inj IV Q1H PRN Pain, Moderate (4-6) Oxytocin/Lactated Ringer's 30 unit in 500 mls @ 200 mls/hr 05/08/24 19:58 Oxytocin Premix IV CONT PRN Bleeding Protocol Tranexamic Acid 1,000 mg/ 100 mls @ 600 mls/hr 05/08/24 19:58 Sodium Chloride IV NOW PRN Bleeding Cefazolin Sodium 1 gm/ Sodium 100 mls @ 200 mls/hr 05/09/24 04:00 Chloride IV Q8H SANDRO Lactated Ringer's 1,000 mls @ 100 mls/hr 05/08/24 20:00 05/08/24 20:00 Lactated Ringers IV 05/09/24 05:59 30 mls/hr CONT SANDRO Administration Oxytocin/Lactated Ringer's 30 unit in 500 mls @ 2 mls/hr 05/08/24 20:15 05/08/24 22:00 Oxytocin Premix IV 2 milliunit/min TITRATE SANDRO 2 mls/hr Administration Protocol 2 MILLIUNIT/MIN Lidocaine HCl 20 ml 05/08/24 19:58 Lidocaine 1% 20 Ml INJ INTRA-OP PRN Post Delivery Methylergonovine Maleate 0.2 mg 05/08/24 19:58 Methylergonovine 0.2 Mg Tablet PO Q6HR PRN Heavy Bleeding Methylergonovine Maleate 0.2 mg 05/08/24 19:58 Methylergonovine 0.2 Mg/Ml Vial IM NOW PRN Bleeding Mineral Oil 30 ml 05/08/24 19:58 Mineral Oil 30 Ml Udc TOP PRN PRN Version Misoprostol 800 mcg 05/08/24 19:58 Misoprostol 200 Mcg Tablet VA NOW PRN Bleeding Misoprostol 400 mcg 05/08/24 19:58 Misoprostol 200 Mcg Tablet SL NOW PRN Bleeding Naloxone HCl 0.2 mg 05/08/24 19:58 Naloxone 0.4 Mg/Ml Vial IV Q2MIN PRN Opiate Reversal Ondansetron HCl 4 mg 05/08/24 20:04 Ondansetron 4 Mg/2 Ml Inj IV Q4HR PRN Nausea And Vomiting Oxytocin 10 unit 05/08/24 19:58 Oxytocin 10 Unit/Ml Vial IM NOW PRN Bleeding Allergies: Allergies Allergy/AdvReac Type Severity Reaction Status Date / Time No Known Drug Allergies Allergy Verified 05/05/24 10:08 --: Attempted to advance epidural catheter -pt complained of zinger sensation on left side. Attempted rotating catheter but unable to advance past 15cm. Needle and catheter removed. Pt re-positioned -epidural space found again and catheter easily threaded. Procedure Insertion date: 05/09/24 Insertion time: 02:21 Prep/Local: 1% lidocaine (chlorohexadine) Interspace: L3-4 Patient position: sitting Needle: 18 gauge Elvira Loss of resistance with: saline YARI at (cm): 8 Catheter placed at SKIN (cm): 14 Catheter in SPACE (cm): 6 Initial Medications TEST DOSE time: 02:21 BOLUS DOSE time: 02:32 BOLUS DOSE (mL): 5 BOLUS DOSE med: 0.25% bupivacaine Infusion INFUSION: 0.125% bupivacaine and with fentanyl 2 mcg/mL Initial rate (mL/hr): 8 Subsequent interventions: infusion increased to 11cc/h 5cc bolus 2% lido @ 0530 Post-procedure Anesthesia date START: 05/09/24 Anesthesia time START: 01:43 Anesthesia date END: 05/09/24 Anesthesia time END: 05:56 Post-procedure Anesthesia Assessment: Yes CV function: HR/BP stable, Yes Resp function: RR/sat/airway adequate, Yes Post-op hydration adequate, Yes Pain control adequate, Yes Nausea & vomiting absent, Yes Temperature > 36 C and Yes Mental status appropriate
--- NOTE | 2024-05-09 06:17 | P.PCNOB_ITS ---
Events: Premature Rupture Membrane Labor & Delivery Delivery date: 05/09/24 Delivery Time: 05:55 Induction method: per pitocin protocol Delivery monitor: external FHT and external uterine Route of delivery: L&D Laceration Description: Perineal - 1st Degree Delivery repair: vicryl Quantitative Blood Loss: 200 Anesthesia Type: Epidural Complications: none Narrative: The patient progressed to C/C/+2 with pitocin augmentation and epidural anesthesia. After approximately 5 sets of maternal pushing efforts, the delivered in OA position and restituted ROT. The anterior shoulder delivered with gentle downward pressure. The posterior shoulder and rest of body delivered with ease. Double nuchal cord was delivered through and reduced at the perineum. The cord was doubly clamped and cut after a 60sec delay with the infant placed on maternal abdomen. The placenta delivered spontaneously and was intact with a 3-vessel cord. The fundus was noted to be firm with bimanual massage and pitocin. Inspection of the cervix, vagina, and perineum was notable for a 1st degree perineal laceration. Repair was performed using 3-0 Vicryl in a running, unlocked fashion. At the end of the repair, all tissues noted to be hemostatic. All sponges were removed from the vagina. The patient tolerated delivery well and remained in the labor room with the at the bedside. [place] Baby 1: Infant gender: Male Presentation: vertex Position: Right Occiput Anterior Placenta delivery description: Spontaneous Cord Vessel Description: 3 Vessels score (1 min): 8 score (5 min): 9 weight: 7 lb 2.182 oz Plan for aftercare: Routine care
[2024-05-09] MEDS: IBUPROFEN 600 MG TABLET PO ×2 (08:41→15:03)
[2024-05-09] MEDS: ACETAMINOPHEN 325 MG TABLET 650 MG PO ×2 (08:42→15:04)
[2024-05-09] MEDS: DERMOPLAST SPRAY 20% 60 ML 1 SPRAY TOP (08:42)
[2024-05-09] MEDS: WITCH HAZEL/GLYCERIN PADS 1 EACH TOP (08:42)
[2024-05-09] MEDS: LANOLIN OINT 7 GM 1 APPLIC TOP (08:43)
[2024-05-10] MEDS: IBUPROFEN 600 MG TABLET PO (03:27)
[2024-05-10] MEDS: ACETAMINOPHEN 325 MG TABLET 650 MG PO (03:27)
[2024-05-10 06:22] LABS: Hematocrit 29.5 % (36-46); Hemoglobin 10.4 g/dL (12.0-16.0)
--- NOTE | 2024-05-10 11:15 | PM.OBDS.1 ---
Discharge Providers Provider Date of admission: 05/08/24 18:12 Discharge Date: 05/10/24 Primary care physician: MARINO Laird Consults: 05/08/24 19:58 Consult to Anesthesiology Urgent Comment: Consulting Provider: Anesthesiologist Reason for consultation: Epidural Has provider been notified: No 05/10/24 08:55 Consult to Automotive Engineering Teacher Routine Comment: Discharge provider: Isabella De La Garza DO Summary Hospital Course Date Patient Seen: 05/10/24 Time Patient Seen: 10:45 Diagnoses: Term gestation at 40+0wks Prelabor rupture of membranes Anemia of Hospital Course: 33yo [id number] admitted at 39+6wks with prelabor rupture of membranes. She underwent pitocin augmentation, and progressed to an uncomplicated spontaneous vaginal delivery, productive of a viable male infant. Her course was unremarkable. On day #1, she was ambulating, tolerating regular diet, voiding spontaneously with minimal lochia. Her pain was well controlled with oral medications, thus she was discharged to home on day #1. Peripartum Data Infant Delivery Method: Natural Vaginal Laceration Description: Perineal - 1st Degree Procedures: External monitoring Epidural anesthesia Pitocin augmentation Spontaneous vaginal delivery Obstetrical laceration repair complications: none 1: Gender: Male Disposition of : home Discharge Diagnosis (1) Vaginal delivery: Status: Acute (2) Anemia in preg-unspec: Status: Acute (3) Maternal varicella, non-immune: Status: Acute (4) 40 weeks gestation of : Status: Acute Status at Discharge Cognitive/behavioral status at discharge: oriented Functional status at discharge: independent ambulation Overall status at discharge: patient is progressing back to baseline Time Spent with Patient Time attestation: Total time spent providing and/or coordinating discharge services: Time spent: Less than 30 minutes Objective Labs 05/10/24 06:05 Labs: Laboratory Results - last 24 hr 05/10/24 06:05 Hgb 10.4 L Hct 29.5 L Exam Vital Signs (past 8 hours): vitals reviewed in OBIX, within normal parameters Const General: cooperative, healthy appearing, comfortable and No acute distress Resp Effort & Inspection: normal respiratory effort GI Inspection: normal to inspection Skin General: no rashes or lesions noted Neuro General: patient alert and patient awake Extrem General: normal to inspection and no calf tenderness Psych Mood: congruent mood Affect: normal affect Discharge Plan Discharge Plan Patient Disposition: Home Provider Discharge Comment: Take ibuprofen 600mg every 6hrs and/or acetaminophen 650mg every 6hrs as needed for pain. Avoid placing anything in the vagina for at least 6 weeks. Discharge orders & Medications Prescriptions: Continued sumatriptan succinate 50 mg tablet See Rx Instructions PO .COMPLEX Qty: 20 2RF Rx Instructions: take 1 tab at onset of headache; if no relief may repeat 1 tab after at least 2 hrs; max = 4 tabs/24 hr PO [id number] 50-325-40 mg capsule 2 cap PO Q6H PRN (Reason: pain) Qty: 30 0RF Rx Instructions: do not exceed 6 tabs per 24 hrs magnesium oxide 500 mg capsule 1,000 mg PO BEDTIME Qty: 60 6RF PNV [id number] fumarate-FA [ Multivitamins] 28 mg iron- 800 mcg tablet 1 tab PO DAILY Qty: 90 3RF Follow up/Referrals: Dandre Olmos MD [Physician] - 6 Weeks (Please call our clinic on 05/11 to book your 6 week appointment. [phone]) Diet/Activity/Treatments Diet: Diet as Tolerated Activity: As tolerated. Skin/Wound/Dressing Care Report to your healthcare provider any signs of infection, such as:: chills, fever, increased pain and unusual drainage Visit Report/Discharge Packet Instructions: DI for Labor and Delivery, Vaginal Stand Alone Forms: Discharge: Care, Patient Portal/API Discharge Data Primary Care Provider: Barbra Arango
[2024-05-10 11:20] VITALS: BP 116/73; PULSE 68; RESP 20; TEMP 36.9
== END 2024-05-10 12:35 | disposition home or self-care (01) | DRG 807 ==
PROVIDERS: Admitting Provider Obstetrics & Gynecology; PCP Nurse Practitioner Family; Visit Provider Obstetrics & Gynecology
DX: O42.02 Full-term premature rupture of membranes, onset of labor within 24 hours of rupture (principal); Z37.0 Single live birth; O70.0 First degree perineal laceration during delivery; Z3A.39 39 weeks gestation of pregnancy
CPT/HCPCS: 36415; 59025; 59050; 59400; 59409; 84112; 85014; 85018; 85025; 86850; 86900; 86901; G0379; J2590